=== PATIENT | female | born 1995 | race Caucasian/White ===

== ENCOUNTER 2017-10-30 22:28 | Emergency (ER) | payer OTHER ==
[~2017-10-30] VITALS: Ht 157.5 cm; Wt 62.1 kg
[2017-10-30] MEDS ORDERED: NORG1TAB74 PO (22:31)
[2017-10-30] MEDS ORDERED: KETOROLAC 30 MG/ML VIAL IVP ONE (22:35)
--- NOTE | 2017-10-30 22:35 | ER Report ---
History and Physical Time Seen By MD: 22:29 HPI/ROS CHIEF COMPLAINT: Chest tightness, anxiousness HISTORY OF PRESENT ILLNESS: 22-year-old female with intermittent chest tightness throughout the day. It's much worse this evening. Patient denies past medical history. She is on control pills. She notes no recent infection URI cough sore throat or fever. She denies leg swelling or calf pain. He states she was studying very intensely for an exam midday today. This semester is her largest class load ever. Patient denies history of acid reflux symptoms. REVIEW OF SYSTEMS: Respiratory: No cough, no dyspnea. Cardiovascular: As above Gastrointestinal: No vomiting, no abdominal pain. Musculoskeletal: No back pain. Allergies: Coded Allergies: No Known Drug Allergies (Unverified , 10/30/17) Home Meds Active Scripts Lorazepam (ATIVAN) 1 Mg Tablet, 1 MG PO Q6-8H Y for ANXIETY, #12 Prov:DAVE COLLINS DO 10/31/17 Reported Medications Norgestimate-Ethinyl Estradiol (SPRINTEC) 1 Each Tablet, 1 EACH PO DAILY 10/30/17 Reviewed Nurses Notes: Yes Old Medical Records Reviewed: Yes Constitutional Vital Sign - Last 24 Hours 10/30/17 10/30/17 10/30/17 10/30/17 22:30 22:31 22:45 23:00 Temp 97.6 Pulse 81 86 ??? Resp 14 21 B/P (MAP) 115/76 (89) 115/76 ???/??? (1665) Pulse Ox 97 99 O2 Delivery Room Air 10/30/17 10/30/17 10/30/17 10/30/17 23:05 23:06 23:15 23:30 Pulse 81 81 78 Resp 14 13 7 B/P (MAP) 130/89 (103) 130/89 (103) 128/82 (97) Pulse Ox 98 97 97 O2 Delivery Room Air 10/30/17 10/31/17 23:45 00:00 Pulse 88 91 Resp 14 7 B/P (MAP) 124/85 (98) Pulse Ox 91 94 Physical Exam General Appearance: The patient is alert, has no immediate need for airway protection and no current signs of toxicity. Vital signs stable, afebrile, pulse ox normal HEENT: Pupils equal and round no injection. Oropharynx without redness or exudate, mucous members are moist Respiratory: Chest is non tender, lungs are clear to auscultation. Positive chest wall tenderness along the costal margin Cardiac: regular rate and rhythm Gastrointestinal: Abdomen is soft and non tender, no masses, bowel sounds normal. Musculoskeletal: Neck: Neck is supple and non tender. No lymphadenopathy Extremities have full range of motion and are non tender. Skin: No rashes or lesions. DIFFERENTIAL DIAGNOSIS: After history and physical exam differential diagnosis was considered for chest pain including but not limited to myocardial ischemia, pericarditis pulmonary embolus, chest wall pain, pleural inflammation , spontaneous pneumothorax, GERD and pulmonary infectious causes. Medical Decision Making Data Points Result Diagram: 10/30/173 10/30/173 Laboratory Hematology Test 10/30/17 22:43 Red Blood Count 4.91 M/uL (4.17-5.56) Mean Corpuscular Volume 83.2 fL (80.0-96.0) Mean Corpuscular Hemoglobin 28.9 pg (26.0-33.0) Mean Corpuscular Hemoglobin Concent 34.7 g/dL (32.0-36.0) Red Cell Distribution Width 12.5 % (11.5-14.5) Mean Platelet Volume 9.9 fL (7.2-11.1) Neutrophils (%) (Auto) 41.5 % (39.4-72.5) Lymphocytes (%) (Auto) 48.8 % (17.6-49.6) Monocytes (%) (Auto) 8.1 % (4.1-12.4) Eosinophils (%) (Auto) 1.3 % (0.4-6.7) Basophils (%) (Auto) 0.3 % (0.3-1.4) Nucleated RBC Relative Count (auto) 0.1 /100WBC Neutrophils # (Auto) 4.7 K/uL (2.0-7.4) Lymphocytes # (Auto) 5.5 K/uL (1.3-3.6) Monocytes # (Auto) 0.9 K/uL (0.3-1.0) Eosinophils # (Auto) 0.1 K/uL (0.0-0.5) Basophils # (Auto) 0.0 K/uL (0.0-0.1) Nucleated RBC Absolute Count (auto) 0.01 K/uL Peripheral Blood Smear Yes Y/N D-Dimer Quantitative (PE/DVT) < 0.27 ug/ml (0-0.50) Sodium Level 136 mmol/L (137-145) Potassium Level 3.9 mmol/L (3.5-5.0) Chloride Level 99 mmol/L (98-107) Carbon Dioxide Level 22 mmol/L (22-31) Blood Urea Nitrogen 7 mg/dl (7-18) Creatinine 0.70 mg/dl (0.52-1.04) Glomerular Filtration Rate Calc > 60.0 Random Glucose 100 mg/dl (75-110) Calcium Level 9.3 mg/dl (8.4-10.2) Total Bilirubin 0.4 mg/dl (0.2-1.3) Aspartate Amino Transf (AST/SGOT) 21 U/L (0-35) Alanine Aminotransferase (ALT/SGPT) 29 U/L (0-56) Alkaline Phosphatase 83 U/L (0-126) Troponin I < 0.012 ng/ml Total Protein 7.5 gm/dl (6.3-8.2) Albumin 4.4 g/dl (3.5-5.0) Chemistry Test 10/30/17 22:43 White Blood Count 11.3 k/uL (4.5-11.0) Red Blood Count 4.91 M/uL (4.17-5.56) Hemoglobin 14.2 g/dL (12.0-16.0) Hematocrit 40.9 % (34.0-47.0) Mean Corpuscular Volume 83.2 fL (80.0-96.0) Mean Corpuscular Hemoglobin 28.9 pg (26.0-33.0) Mean Corpuscular Hemoglobin Concent 34.7 g/dL (32.0-36.0) Red Cell Distribution Width 12.5 % (11.5-14.5) Platelet Count 255 K/uL (150-450) Mean Platelet Volume 9.9 fL (7.2-11.1) Neutrophils (%) (Auto) 41.5 % (39.4-72.5) Lymphocytes (%) (Auto) 48.8 % (17.6-49.6) Monocytes (%) (Auto) 8.1 % (4.1-12.4) Eosinophils (%) (Auto) 1.3 % (0.4-6.7) Basophils (%) (Auto) 0.3 % (0.3-1.4) Nucleated RBC Relative Count (auto) 0.1 /100WBC Neutrophils # (Auto) 4.7 K/uL (2.0-7.4) Lymphocytes # (Auto) 5.5 K/uL (1.3-3.6) Monocytes # (Auto) 0.9 K/uL (0.3-1.0) Eosinophils # (Auto) 0.1 K/uL (0.0-0.5) Basophils # (Auto) 0.0 K/uL (0.0-0.1) Nucleated RBC Absolute Count (auto) 0.01 K/uL Peripheral Blood Smear Yes Y/N D-Dimer Quantitative (PE/DVT) < 0.27 ug/ml (0-0.50) Glomerular Filtration Rate Calc > 60.0 Calcium Level 9.3 mg/dl (8.4-10.2) Total Bilirubin 0.4 mg/dl (0.2-1.3) Aspartate Amino Transf (AST/SGOT) 21 U/L (0-35) Alanine Aminotransferase (ALT/SGPT) 29 U/L (0-56) Alkaline Phosphatase 83 U/L (0-126) Troponin I < 0.012 ng/ml Total Protein 7.5 gm/dl (6.3-8.2) Albumin 4.4 g/dl (3.5-5.0) Coagulation Test 10/30/17 22:43 D-Dimer Quantitative (PE/DVT) < 0.27 ug/ml EKG/Imaging EKG Interpretation 12 lead EKG: Rhythm: normal sinus rhythm [place]: normal QRS: normal ST segments: normal Imaging X-ray: Two-view chest x-ray was obtained. I viewed the images myself on the PACS system. My interpretation of the images is: No infiltrate, no effusion, normal mediastinum. The radiologist interpretation had no clinically significant variation from this interpretation. ED Course/Re-evaluation Clinical Indication for ER IV: IV Access ED Course Patient was admitted to an examination room. H&P was done. The differential diagnosis was considered. Patient with chest tightness. She is under great deal of stress studying for finals curing her largest class load the semester. Patient's symptoms seem to be anxiety related. Patient's had no recent URI or infection. Patient is on control pills. Her d-dimer is negative. Her EKG is unremarkable. Her troponin is negative. Her chest x-ray is unremarkable. Patient's medicated with Toradol for pain and Ativan for anxiety. On reevaluation she feels much better. She is advised to continue ibuprofen for costochondritis for several more days. She had a prescription for Ativan to control her anxiety. She is advised to follow-up with Dr. Sung Decision to Disposition Date: Oct 31, 2017 Decision to Disposition Time: 00:09 Depart Departure Latest Vital Signs Vital Signs Date Time Temp Pulse Resp B/P (MAP) Pulse Ox O2 Delivery O2 Flow Rate FiO2 10/31/17 00:00 91 7 124/85 (98) 94 10/30/17 23:05 Room Air 10/30/17 22:31 97.6 Impression: Primary Impression: Costochondritis Additional Impression: Anxiety Condition: Improved Disposition: HOME OR SELF-CARE Referrals: EUGENIO SUNG MD New Scripts Lorazepam (ATIVAN) 1 Mg Tablet 1 MG PO Q6-8H Y for ANXIETY, #12 Prov: DAVE COLLINS DO 10/31/17 Patient Instructions: Anxiety (ED), Costochondritis (ED) Additional Instructions: Get some general exercise for 15 or 20 minutes per day Take ibuprofen 200 mg 2-3 tablets 3 times a day with food Apply heating pad to your chest wall Follow-up with Dr. Sung if unimproved in 3-5 days Problem Qualifiers DAVE COLLINS DO Oct 30, 2017 22:35
[2017-10-30 23:03] LABS: PLATELET COUNT, AUTOMATED 255 K/uL (150-450)
[2017-10-30] MEDS ORDERED: LORazepam 2 MG/ML VIAL IVP ONE (23:10)
--- NOTE | 2017-10-30 23:30 | RADIOLOGY IMAGING REPORT ---
FACILITY: [facility] - [place] PATIENT NAME: Keturah Ricardo : 1995 MR: [id number] V: [id number] EXAM DATE: ORDERING PHYSICIAN: DAVE COLLINS TECHNOLOGIST: Location: [facility] Patient: Keturah Ricardo : 1995 Visit/Account:[id number] Date of Sevice: 10/30/2017 CHEST: Indication: Chest pain. Technique: Frontal and lateral views were obtained. Comparison: None. Skeletal and soft tissue structures: Intact and unremarkable. Heart and mediastinum: Within normal limits. Lung de leon: Well-expanded and clear. Pleural spaces: Unremarkable. Impression: No acute process. Report Dictated By: Abhi Schwab MD at 10/30/2017 11:25 PM Report E-Signed By: Abhi Schwab MD at 10/30/2017 11:26 PM WSN:[id number]
[2017-10-31] VITALS: BP 124/85
--- NOTE | 2017-10-31 00:07 | EKG ---
FACILITY: [facility] - [place] PATIENT NAME: LADONNA GÓMEZ : [id number] MR: [id number] V: [id number] EXAM DATE: ORDERING PHYSICIAN: DAVE COLLINS TECHNOLOGIST: VERONIKA Test Reason : SYNCOPE Blood Pressure : / mmHG Vent. Rate : 098 BPM Atrial Rate : 098 BPM P-R Int : 132 ms QRS Dur : 084 ms QT Int : 374 ms P-R-T Axes : 054 075 038 degrees QTc Int : 477 ms Sinus rhythm Possible Left atrial enlargement Prolonged QT Abnormal ECG No previous ECGs available Confirmed by BERTHA SILVESTRE ([id number]) on 10/31/2017 6:03:58 AM Referred By: Confirmed By:BERTHA SILVESTRE
[2017-10-31] MEDS ORDERED: LORA-1456 PO (00:25)
== END 2017-10-31 00:35 | disposition home or self-care (01) ==
LOC: ER 22:41
DX: M94.0 Chondrocostal junction syndrome [Tietze] (principal); F41.9 Anxiety disorder, unspecified
CPT/HCPCS: 71046; 84484; 85025; 85379; 93005; 96374; 96375; 99285; J1885; J2060; 82040; 82247; 82310; 82374; 82435; 82565; 82947; 84075; 84132; 84155; 84295; 84450; 84460; 84520

== ENCOUNTER → 2018-12-19 | Outpatient (CLI) | payer OTHER ==
[~2018-12-19] MED LIST: LORA-1456 PO; NORG1TAB74 PO
== END ==
LOC: LAB 09:35
PROVIDERS: ATTEND Nurse Practitioner Psychiatric/Mental Health
DX: Z79.899 Other long term (current) drug therapy (principal)
CPT/HCPCS: 36415; 82465; 83036; 83718; 84478